=== PATIENT | female | born 1955 | race Caucasian/White ===

== ENCOUNTER 2020-09-18 11:06 | Inpatient (IN) ==
[2020-09-18 15:16] VITALS: BMI 29.5
[2020-09-18] MEDS ORDERED: DUONEB 0.5 MG/3 MG (3 mL) NEB ONE (16:10)
[2020-09-18] MEDS ORDERED: SALINE 3% 15 ML NEB TX ONE (16:10)
[2020-09-18] MEDS ORDERED: SALINE 3% 15 ML NEB TX NEB ONE (16:23)
[2020-09-18] MEDS ORDERED: DUONEB 0.5 MG/3 MG (3 mL) NEB SCH (17:00)
[2020-09-18 17:06] LABS: BASOPHILS % (AUTO) 0.5 % (0.2-1.0); EOSINOPHILS # (AUTO) 0.1 x10^3/uL (0.0-0.2); EOSINOPHILS % (AUTO) 1.7 % (0.9-2.9); HEMATOCRIT 33.9 % (36.0-47.0); LYMPHOCYTES % (AUTO) 40.4 % (21.0-51.0); MEAN CORPUSCULAR HEMOGLOBIN 20.8 pg (27.0-34.0); MEAN CORPUSCULAR HGB CONC 32.6 g/dL (33.0-35.0); MEAN CORPUSCULAR VOLUME 63.9 fL (80.0-100.0); MEAN PLATELET VOLUME 8.3 fL (7.4-11.0); MONOCYTES # (AUTO) 0.6 x10^3/uL (0.3-0.8); NEUTROPHILS # (AUTO) 3.6 x10^3/uL (2.2-4.8); NEUTROPHILS % (AUTO) 49.4 % (42.0-75.0); PLATELET COUNT 306 X10^3/uL (150.0-450.0); RED CELL DISTRIBUTION WIDTH 20.1 % (11.6-16.5); WHITE BLOOD COUNT 7.3 X10^3/uL (3.6-10.0)
[2020-09-18 17:25] LABS: ALANINE AMINOTRANSFERASE 63 Units/L (12-78); ALBUMIN 3.7 g/dL (3.4-5.0); ALKALINE PHOSPHATASE 97 Units/L (46-116); ASPARTATE AMINO TRANSFERASE 46 Units/L (15-37); BLOOD UREA NITROGEN 13 mg/dL (7-18); CALCIUM 9.2 mg/dL (8.5-10.1); CARBON DIOXIDE 25.6 mmol/L (21-32); CHLORIDE 104 mmol/L (98-107); COR NA(FOR HYPERGLY) 144 mmol/L (136-145); CREATININE 1.14 mg/dL (0.55-1.02); SODIUM 141 mmol/L (136-145); TOTAL PROTEIN 7.5 g/dL (6.4-8.2); eGFR NON BLACK RACES 51 (>60)
[2020-09-18] MEDS: FORTAZ or TAZICEF VIAL INJ 1 G in NS 100 ML IV + SPIKE MINIBAG* 100 ML IV SCH ×2 (17:59→22:12)
[2020-09-18] MEDS ORDERED: NS 1/2 1000 ML IV 1,000 ML IV ONE (18:00)
[2020-09-18] MEDS: LEVAQUIN PREMIX IV 500 MG 500 MG/100 ML BAG IV SCH (18:02)
[2020-09-18] MEDS: NS 1/2 1000 ML IV 1,000 ML IV SCH (18:02)
[2020-09-18] MEDS: ROBITUSSIN DM PO SCH ×2 (18:02→22:12)
[2020-09-18] MEDS: VSL#3 PO SCH (18:02)
[2020-09-18 18:11] LABS: MICROCYTOSIS 2+; PLATELET MORPHOLOGY COMMENT NORMAL (NORMAL)
[2020-09-18] MEDS: DUONEB 0.5 MG/3 MG (3 mL) NEB SCH (20:45)
[2020-09-19] MEDS: FORTAZ or TAZICEF VIAL INJ 1 G in NS 100 ML IV + SPIKE MINIBAG* 100 ML IV SCH ×3 (05:22→21:00)
--- NOTE | 2020-09-19 05:56 | RAD ---
PROCEDURE: Chest X-ray 1 View .HISTORY: PNEUMONIA .TECHNIQUE: AP view .COMPARISON: None .TECHNICAL QUALITY: Satisfactory .FINDINGS:Normal size heart .Mediastinum and hilar regions show no masses or lymphadenopathy .Normal central vascularity .No pulmonary consolidation, masses, pleural fluid, or pneumothorax .No acute bony abnormality .IMPRESSION:No active cardiopulmonary disease .Electronically signed by: Denys Navarrete (Sep 19, 2020 05:54:20)
[2020-09-19] MEDS: NS 1/2 1000 ML IV 1,000 ML IV SCH (06:19)
[2020-09-19 06:50] LABS: BASOPHILS % (AUTO) 0.6 % (0.2-1.0); EOSINOPHILS # (AUTO) 0.2 x10^3/uL (0.0-0.2); EOSINOPHILS % (AUTO) 2.9 % (0.9-2.9); HEMATOCRIT 29.8 % (36.0-47.0); HEMOGLOBIN 9.7 g/dL (12.0-16.0); LYMPHOCYTES # (AUTO) 2.5 X10^3/uL (1.3-2.9); MEAN CORPUSCULAR HEMOGLOBIN 20.6 pg (27.0-34.0); MEAN CORPUSCULAR HGB CONC 32.6 g/dL (33.0-35.0); MEAN CORPUSCULAR VOLUME 63.4 fL (80.0-100.0); MEAN PLATELET VOLUME 8.6 fL (7.4-11.0); MONOCYTES # (AUTO) 0.5 x10^3/uL (0.3-0.8); MONOCYTES % (AUTO) 7.9 % (0.0-13.0); NEUTROPHILS # (AUTO) 3.5 x10^3/uL (2.2-4.8); NEUTROPHILS % (AUTO) 51.6 % (42.0-75.0); PLATELET COUNT 278 X10^3/uL (150.0-450.0); RED BLOOD COUNT 4.71 X10^6/uL (3.5-5.4); RED CELL DISTRIBUTION WIDTH 20.2 % (11.6-16.5); WHITE BLOOD COUNT 6.8 X10^3/uL (3.6-10.0)
[2020-09-19 07:14] LABS: ALANINE AMINOTRANSFERASE 51 Units/L (12-78); ALBUMIN 3.3 g/dL (3.4-5.0); ALKALINE PHOSPHATASE 84 Units/L (46-116); ASPARTATE AMINO TRANSFERASE 38 Units/L (15-37); BLOOD UREA NITROGEN 12 mg/dL (7-18); CALCIUM 8.8 mg/dL (8.5-10.1); CARBON DIOXIDE 23.8 mmol/L (21-32); CHLORIDE 105 mmol/L (98-107); COR CA(FOR HYPOALB) 9.4 mg/dL (8.5-10.1); COR NA(FOR HYPERGLY) 143 mmol/L (136-145); CREATININE 1.02 mg/dL (0.55-1.02); SODIUM 142 mmol/L (136-145); TOTAL PROTEIN 6.7 g/dL (6.4-8.2); eGFR NON BLACK RACES 58 (>60)
[2020-09-19 07:19] LABS: PLATELET MORPHOLOGY COMMENT NORMAL (NORMAL)
[2020-09-19 07:20] LABS: ANISOCYTOSIS 1+; HYPOCHROMASIA 1+; MICROCYTOSIS 2+
[2020-09-19] MEDS: DUONEB 0.5 MG/3 MG (3 mL) NEB SCH ×4 (08:56→20:54)
[2020-09-19] MEDS: LEVAQUIN PREMIX IV 500 MG 500 MG/100 ML BAG IV SCH (10:00)
[2020-09-19] MEDS: ROBITUSSIN DM PO SCH ×4 (10:00→20:54)
[2020-09-19] MEDS: VSL#3 PO SCH (10:00)
[2020-09-19] MEDS ORDERED: NS 1/2 1000 ML IV 1,000 ML IV ONE (10:09)
[2020-09-19] MEDS ORDERED: NORVASC TAB 5 MG ONE (13:46)
[2020-09-19] MEDS: NORVASC TAB 5 MG PO SCH (14:02)
--- NOTE | 2020-09-19 17:24 | DR.UPDATE ---
H&P Update History and Physical Update: History and Physical reviewed and patient examined. Changes noted: Yes with the following: WAS ADMITTED FOR BRONCHOPNEUMONIA, FAILED OUTPATIENT TREATMENT. ON ARRIVAL TO THE HOSPITAL, VITALS WERE 98.5-80-20-93%-181/87. LABS WERE OBTAINED. ABNORMAL LAB VALUES INCLUDE THE FOLLOWING: HGB 11.0, HCT 33.9, CREATININE 1.14, GLUCOSE 229, AST 46. COVID AND INFLUENZA NEGATIVE. PATIENT IS POSITIVE FOR RSV. BLOOD AND SPUTUM CULTURES WERE SET UP. CHEST XRAY WAS OBTAINED AND REVEALED: Nor mal size heart. Mediastinum and hilar regions show no masses or lymphadenopathy. Normal central vascularity. No pulmonary consolidation, masses, pleural fluid, or pneumothorax. No acute bony abnormality. SHE WAS STARTED ON 1/2NS AT 75 ML/HR, LEVAQUIN 500MG IV DAILY, FORTAZ 1G IV Q8H, DUONEBS QID, NORVASC 5MG PO DAILY, ROBITUSSIN DM 10 ML PO QID, OTBS ACHS, AND HUMULIN R SLIDING SCALE. OTHERWISE, WE WILL FOLLOW UP WITH AM LABS AND CHEST XRAY. TIME SPENT ON CLINICAL ASSESSMENT, REVIEWING LABS AND IMAGING, DECISION MAKING, AND DOCUMENTATION GREATER THAN 75 MINUTES. H&P Reviewed: No Patient was examined?: No
[2020-09-19] MEDS ORDERED: SNACK - Diabetic Appropriate PO SCH (20:00)
[2020-09-19] MEDS ORDERED: TYLENOL 325 MG TAB PO PRN (20:27)
[2020-09-20] MEDS: NS 1/2 1000 ML IV 1,000 ML IV SCH ×3 (00:24→11:48)
[2020-09-20] MEDS ORDERED: NS 1/2 1000 ML IV 1,000 ML IV ONE (04:18)
--- NOTE | 2020-09-20 05:18 | RAD ---
PROCEDURE: Chest X-ray 1 View .HISTORY: PNEUMONIA .TECHNIQUE: AP view .COMPARISON: 09/19/2020.TECHNICAL QUALITY: Satisfactory .FINDINGS:Normal size heart .Mediastinum and hilar regions show no masses or lymphadenopathy .Normal central vascularity .No pulmonary consolidation, masses, pleural fluid, or pneumothorax .No acute bony abnormality .IMPRESSION:No active cardiopulmonary disease .Electronically signed by: Denys Navarrete (Sep 20, 2020 05:16:05)
[2020-09-20 05:38] LABS: BASOPHILS # (AUTO) 0.1 X10^3/uL (0.0-0.1); BASOPHILS % (AUTO) 0.9 % (0.2-1.0); EOSINOPHILS # (AUTO) 0.2 x10^3/uL (0.0-0.2); EOSINOPHILS % (AUTO) 3.3 % (0.9-2.9); HEMATOCRIT 30.8 % (36.0-47.0); LYMPHOCYTES # (AUTO) 2.3 X10^3/uL (1.3-2.9); LYMPHOCYTES % (AUTO) 37.4 % (21.0-51.0); MEAN CORPUSCULAR HEMOGLOBIN 20.4 pg (27.0-34.0); MEAN CORPUSCULAR HGB CONC 32.4 g/dL (33.0-35.0); MEAN CORPUSCULAR VOLUME 63.1 fL (80.0-100.0); MEAN PLATELET VOLUME 8.6 fL (7.4-11.0); MONOCYTES # (AUTO) 0.5 x10^3/uL (0.3-0.8); MONOCYTES % (AUTO) 7.3 % (0.0-13.0); NEUTROPHILS # (AUTO) 3.2 x10^3/uL (2.2-4.8); NEUTROPHILS % (AUTO) 51.1 % (42.0-75.0); PLATELET COUNT 297 X10^3/uL (150.0-450.0); RED BLOOD COUNT 4.88 X10^6/uL (3.5-5.4); RED CELL DISTRIBUTION WIDTH 20.6 % (11.6-16.5); WHITE BLOOD COUNT 6.2 X10^3/uL (3.6-10.0)
[2020-09-20 05:51] LABS: ALANINE AMINOTRANSFERASE 51 Units/L (12-78); ALBUMIN 3.2 g/dL (3.4-5.0); ALKALINE PHOSPHATASE 87 Units/L (46-116); ASPARTATE AMINO TRANSFERASE 41 Units/L (15-37); BLOOD UREA NITROGEN 11 mg/dL (7-18); CALCIUM 8.6 mg/dL (8.5-10.1); CARBON DIOXIDE 24.3 mmol/L (21-32); CHLORIDE 104 mmol/L (98-107); COR CA(FOR HYPOALB) 9.2 mg/dL (8.5-10.1); COR NA(FOR HYPERGLY) 144 mmol/L (136-145); CREATININE 1.04 mg/dL (0.55-1.02); SODIUM 141 mmol/L (136-145); TOTAL PROTEIN 6.8 g/dL (6.4-8.2); eGFR NON BLACK RACES 56 (>60)
[2020-09-20 06:12] LABS: ANISOCYTOSIS 1+; HYPOCHROMASIA SLIGHT; MICROCYTOSIS 2+; OVALOCYTES PRESENT; PLATELET MORPHOLOGY COMMENT NORMAL (NORMAL)
[2020-09-20] MEDS: HumuLIN R SUBCUT PRN ×2 (06:18→11:40)
[2020-09-20] MEDS: FORTAZ or TAZICEF VIAL INJ 1 G in NS 100 ML IV + SPIKE MINIBAG* 100 ML IV SCH (06:20)
[2020-09-20] MEDS ORDERED: K-DUR TAB 20 MEQ PO PRN (06:33)
[2020-09-20] MEDS: DUONEB 0.5 MG/3 MG (3 mL) NEB SCH (09:02)
[2020-09-20] MEDS: ROBITUSSIN DM PO SCH (09:15)
[2020-09-20] MEDS: NORVASC TAB 5 MG PO SCH (09:15)
[2020-09-20] MEDS: LEVAQUIN PREMIX IV 500 MG 500 MG/100 ML BAG IV SCH (09:15)
[2020-09-20] MEDS: VSL#3 PO SCH (09:15)
[2020-09-20 11:57] VITALS: BP 163/81
== END 2020-09-20 12:20 | disposition home or self-care (01) | DRG 195 ==
LOC: MED/SURG 13:31
PROVIDERS: ADMIT Internal Medicine; ATTEND Internal Medicine
DX: I10 Essential (primary) hypertension; Z20.822 Contact with and (suspected) exposure to COVID-19; J12.1 Respiratory syncytial virus pneumonia; E11.65 Type 2 diabetes mellitus with hyperglycemia